=== PATIENT | female | born 1950 | race Caucasian/White ===

== ENCOUNTER → 2021-03-30 | Outpatient (CLI) | payer OTHER | LOC: HEART CORB 14:07 | DX: R03.0 Elevated blood-pressure reading, without diagnosis of hypertension (principal); R06.02 Shortness of breath | CPT/HCPCS: 93306 ==

== ENCOUNTER 2021-09-20 18:21 | Emergency (ER) | payer OTHER ==
[2021-09-20 20:06] LABS: HEMOGLOBIN 15.1 gm/dl (12.3-15.3); RED BLOOD COUNT 5.24 M/UL (4.00-5.10); WHITE BLOOD COUNT 6.3 K/UL (4.5-11.0)
[2021-09-20 20:35] LABS: BUN/CREATININE RATIO 10 (0-10)
== END 2021-09-20 21:08 | disposition left against medical advice (07) ==
LOC: ER1 18:21
PROVIDERS: Physician Assistant
DX: U07.1 COVID-19 (principal); Z88.5 Allergy status to narcotic agent; Z88.8 Allergy status to other drugs, medicaments and biological substances
CPT/HCPCS: 71045; 80053; 82550; 82553; 84484; 85025; 85652; 86140; 99283